=== PATIENT | male | born 1985 | race African-American/Black ===

== ENCOUNTER 2023-10-14 10:04 | Inpatient (IN) | payer MEDICAID ==
[~2023-10-14] VITALS: Ht 185.4 cm; Wt 149.7 kg
[2023-10-14] MEDS ORDERED: ZOLPIDEM TARTRATE 10 MG TABLET PO PRN (11:15)
[2023-10-14 11:18] LABS: BASOPHILS % (AUTO) 0.9 % (0.0-2.0); EOSINOPHILS % (AUTO) 1.8 % (1.0-6.0); HEMATOCRIT 42.9 % (41-53); HEMOGLOBIN 14.6 g/dL (13.5-17.5); LYMPHOCYTES # (AUTO) 1.3 K/uL (1.0-4.8); LYMPHOCYTES % (AUTO) 25.3 % (22.0-44.0); MEAN CORPUSCULAR HEMOGLOBIN 30.4 pg (26.0-34.0); MEAN CORPUSCULAR HGB CONC 33.9 G/dL (31.0-37.0); MEAN CORPUSCULAR VOLUME 90 fL (80-100); MONOCYTES # (AUTO) 0.4 K/uL (0.1-1.0); MONOCYTES % (AUTO) 8.4 % (2.0-9.0); NEUTROPHILS # (AUTO) 3.3 K/uL (1.8-7.7); NEUTROPHILS % (AUTO) 63.6 % (40.0-70.0); PLATELET COUNT (AUTO) 185 K/uL (150-450); RED BLOOD CELL COUNT(AUTO) 4.78 MIL/uL (4.50-5.90); RED CELL DISTRIBUTION WIDTH 15.2 % (11.5-14.5); WHITE BLOOD COUNT (AUTO) 5.3 K/uL (4.5-11.0)
[2023-10-14 11:25] LABS: ANION GAP 3 mmol/L (8-16); CALCIUM, TOTAL 8.9 mg/dL (8.8-10.5); CARBON DIOXIDE 32 mmol/L (22-29); CHLORIDE 103 mmol/L (98-107); CREATININE 1.04 mg/dL (0.60-1.30); GLOMERULAR FILTR. RATE CALC > 60 mL/min (>60); GLUCOSE,RANDOM 159 mg/dL (70-110); POTASSIUM 3.4 mmol/L (3.5-5.1); SODIUM SERUM 138 mmol/L (136-145); UREA NITROGEN, BLOOD 12 mg/dL (7-18)
[2023-10-14 11:31] LABS: ALANINE AMINOTRANSFERASE 45 U/L (12-78); ALBUMIN 3.3 g/dL (3.4-5.0); ALKALINE PHOSPHATASE 98 U/L (46-116); ASPARTATE AMINOTRANSFERASE 27 U/L (15-37); BILIRUBIN,TOTAL 0.6 mg/dL (0.1-1.0); TOTAL PROTEIN, SERUM 8.5 g/dL (6.4-8.2)
[2023-10-14 11:38] LABS: ALCOHOL, BLOOD (SERUM) < 3 mg/dL (0-10)
[2023-10-14 11:50] LABS: APPEARANCE,URINE HAZY (CLEAR); BILIRUBIN,URINE NEGATIVE (NEGATIVE); COLOR,URINE YELLOW (YELLOW); GLUCOSE, URINE (UA) NEGATIVE (NEGATIVE); KETONES,URINE NEGATIVE (NEGATIVE); LEUKOCYTE ESTERASE ,URINE NEGATIVE (NEGATIVE); NITRATE,URINE NEGATIVE (NEGATIVE); OCCULT BLOOD,URINE NEGATIVE (NEGATIVE); PH,URINE 7.5 (5.0-8.0); PROTEIN,URINE 30-70 mg/dL (NEGATIVE); SPECIFIC GRAVITIY, URINE 1.026 (1.003-1.030); UROBILINOGEN,URINE <=1.0 mg/dL (<=1.0)
[2023-10-14 11:55] LABS: PH,URINE DRUG SCREEN 7.5 (5.0-8.0)
[2023-10-14 11:56] LABS: ALCOHOL, URINE DRUG SCREEN NEGATIVE (NEGATIVE); AMPHET/METH SCREEN,URINE NEGATIVE (NEGATIVE); BARBITURATE SCREEN, URINE NEGATIVE (NEGATIVE); BENZODIAZEPINES SCREEN,URINE NEGATIVE (NEGATIVE); CANNABINOID SCREEN,URINE NEGATIVE (NEGATIVE); COCAINE SCREEN,URINE NEGATIVE (NEGATIVE); METHADONE SCREEN, URINE NEGATIVE (NEGATIVE); OPIATE SCREEN,URINE NEGATIVE (NEGATIVE); PHENCYCLIDINE SCREEN,URINE NEGATIVE (NEGATIVE)
[2023-10-14 23:36] LABS: COVID AG,FIA SOURCE NASAL SWAB
[2023-10-14 23:54] LABS: SARS-COV2 (COVID) ANTIGEN,FIA Negative (Negative)
[2023-10-15 04:54] VITALS: BP 162/120; PULSE 67; RESP 18; TEMP 98.1; O2SAT 96
[2023-10-15] MEDS: LORazepam 2 MG TABLET PO PRN (07:52)
[2023-10-15] MEDS: HALOPERIDOL 5 MG TABLET PO PRN (07:52)
[2023-10-15 08:05] VITALS: BP 174/110; PULSE 70; RESP 18; TEMP 97.5; O2SAT 98
[2023-10-15] MEDS: AmLODIPine BESYLATE 5 MG TABLET PO SCH (08:07)
[2023-10-15 12:47] VITALS: BP 149/100; PULSE 84; RESP 18; TEMP 98.3; O2SAT 99
[2023-10-15] MEDS: RisperiDONE 1 MG TABLET PO SCH (17:29)
[2023-10-15 23:30] VITALS: BP 144/99; PULSE 96; RESP 18; TEMP 97.9; O2SAT 99
[2023-10-16 08:00] VITALS: BP 149/106; PULSE 71; RESP 18; TEMP 98.2; O2SAT 99
[2023-10-16] MEDS: CLOBETASOL 0.05% 15 GM OINTMENT TP SCH (08:30)
[2023-10-16] MEDS: AmLODIPine BESYLATE 5 MG TABLET PO SCH (08:30)
[2023-10-16] MEDS: RisperiDONE 1 MG TABLET PO SCH ×2 (08:30→16:20)
[2023-10-16] MEDS: LORazepam 2 MG TABLET PO PRN ×2 (08:33→16:20)
[2023-10-16] MEDS ORDERED: AmLODIPine BESYLATE 5 MG TABLET PO ONE (14:00)
[2023-10-16 14:04] VITALS: BP 162/116; PULSE 93; RESP 18; TEMP 98.4; O2SAT 100
[2023-10-16 16:18] VITALS: BP 158/99; PULSE 82; RESP 18; TEMP 98.2; O2SAT 100
[2023-10-16 20:32] VITALS: BP 147/84; PULSE 98; RESP 20; TEMP 97.7; O2SAT 98
[2023-10-17] MEDS: HALOPERIDOL 5 MG TABLET PO PRN (07:56)
[2023-10-17] MEDS: LORazepam 2 MG TABLET PO PRN (07:56)
[2023-10-17] MEDS: CLOBETASOL 0.05% 15 GM OINTMENT TP SCH (08:05)
[2023-10-17] MEDS: AmLODIPine BESYLATE 10 MG TABLET PO SCH (08:05)
[2023-10-17] MEDS: RisperiDONE 1 MG TABLET PO SCH ×2 (08:05→16:11)
[2023-10-17 08:10] VITALS: BP_SYST 104; BP_SYST 166; BP_DIAS 113; BP_DIAS 64; PULSE 70; PULSE 90; RESP 18; TEMP 97.8; O2SAT 100
[2023-10-17 08:26] LABS: ANION GAP 5 mmol/L (8-16); CALCIUM, TOTAL 8.7 mg/dL (8.8-10.5); CARBON DIOXIDE 29 mmol/L (22-29); CHLORIDE 105 mmol/L (98-107); CREATININE 0.96 mg/dL (0.60-1.30); GLOMERULAR FILTR. RATE CALC > 60 mL/min (>60); GLUCOSE,RANDOM 92 mg/dL (70-110); POTASSIUM 3.9 mmol/L (3.5-5.1); SODIUM SERUM 139 mmol/L (136-145); UREA NITROGEN, BLOOD 7 mg/dL (7-18)
[2023-10-17 08:27] LABS: HEMOGLOBIN A1C 5.6 % (3.8-5.6)
[2023-10-17 14:14] VITALS: BP 158/102; PULSE 85; RESP 18; O2SAT 100
[2023-10-17 22:52] VITALS: BP 138/93; PULSE 83; RESP 18; TEMP 98.4; O2SAT 95
[2023-10-18] MEDS: LORazepam 2 MG TABLET PO PRN ×2 (08:24→16:15)
[2023-10-18] MEDS: RisperiDONE 1 MG TABLET PO SCH ×2 (08:24→16:15)
[2023-10-18] MEDS: HALOPERIDOL 5 MG TABLET PO PRN ×2 (08:24→16:15)
[2023-10-18] MEDS: AmLODIPine BESYLATE 10 MG TABLET PO SCH (08:24)
[2023-10-18] MEDS: CLOBETASOL 0.05% 15 GM OINTMENT TP SCH (08:25)
[2023-10-18 09:01] VITALS: BP 149/98; PULSE 87; RESP 18; TEMP 98.4; O2SAT 100
[2023-10-19 05:59] VITALS: BP 162/92; PULSE 82; RESP 18; TEMP 98; O2SAT 99
[2023-10-19 08:33] VITALS: BP 147/90; PULSE 100; RESP 18; TEMP 98; O2SAT 100
[2023-10-19] MEDS: RisperiDONE 1 MG TABLET PO SCH (09:27)
[2023-10-19] MEDS: CLOBETASOL 0.05% 15 GM OINTMENT TP SCH (09:27)
[2023-10-19] MEDS: AmLODIPine BESYLATE 10 MG TABLET PO SCH (09:27)
[2023-10-19] MEDS: LORazepam 2 MG TABLET PO PRN (17:32)
[2023-10-19] MEDS: RisperiDONE 2 MG TABLET PO SCH (17:32)
[2023-10-19 21:46] VITALS: BP 144/91; PULSE 84; RESP 18; TEMP 97.7
[2023-10-20] MEDS: CLOBETASOL 0.05% 15 GM OINTMENT TP SCH (08:14)
[2023-10-20] MEDS: AmLODIPine BESYLATE 10 MG TABLET PO SCH (08:14)
[2023-10-20] MEDS: RisperiDONE 2 MG TABLET PO SCH ×2 (08:14→16:29)
[2023-10-20 11:00] VITALS: BP 133/72; PULSE 95; RESP 18; TEMP 97.7; O2SAT 98
[2023-10-20 21:00] VITALS: BP 125/69; PULSE 85; RESP 18; TEMP 97.1; O2SAT 99
[2023-10-21 08:36] VITALS: BP 140/79; PULSE 91; RESP 19; TEMP 97.6; O2SAT 99
[2023-10-21] MEDS: RisperiDONE 2 MG TABLET PO SCH ×2 (09:03→16:01)
[2023-10-21] MEDS: CLOBETASOL 0.05% 15 GM OINTMENT TP SCH (09:03)
[2023-10-21] MEDS: AmLODIPine BESYLATE 10 MG TABLET PO SCH (09:03)
[2023-10-21 20:19] VITALS: BP 126/92; PULSE 99; RESP 19; TEMP 97.5; O2SAT 98
[2023-10-22] MEDS: RisperiDONE 2 MG TABLET PO SCH ×2 (08:27→16:03)
[2023-10-22] MEDS: AmLODIPine BESYLATE 10 MG TABLET PO SCH (08:27)
[2023-10-22 08:53] VITALS: BP 130/90; PULSE 81; RESP 18; TEMP 97.8; O2SAT 100
[2023-10-22] MEDS: CLOBETASOL 0.05% 15 GM OINTMENT TP SCH (09:04)
[2023-10-22 20:07] VITALS: BP 144/90; PULSE 81; RESP 18; TEMP 97.8; O2SAT 98
[2023-10-23 08:29] VITALS: BP 122/95; PULSE 80; RESP 18; TEMP 97.9; O2SAT 96
[2023-10-23] MEDS: RisperiDONE 2 MG TABLET PO SCH ×2 (08:57→16:49)
[2023-10-23] MEDS: CLOBETASOL 0.05% 15 GM OINTMENT TP SCH (08:57)
[2023-10-23] MEDS: AmLODIPine BESYLATE 10 MG TABLET PO SCH (08:57)
[2023-10-23] MEDS: LORazepam 2 MG TABLET PO PRN (08:57)
[2023-10-23] MEDS: HALOPERIDOL 5 MG TABLET PO PRN (08:58)
[2023-10-23] MEDS ORDERED: RISP2TAB86 PO (11:40)
[2023-10-23 20:16] VITALS: BP 124/68; PULSE 94; RESP 18; TEMP 97.6; O2SAT 99
[2023-10-24 08:25] VITALS: BP 132/98; PULSE 82; RESP 18; TEMP 97.7; O2SAT 100
[2023-10-24] MEDS: RisperiDONE 2 MG TABLET PO SCH (09:20)
[2023-10-24] MEDS: CLOBETASOL 0.05% 15 GM OINTMENT TP SCH (09:21)
[2023-10-24] MEDS: AmLODIPine BESYLATE 10 MG TABLET PO SCH (09:21)
[2023-10-24] MEDS ORDERED: RISP2TAB86 PO (10:45)
[2023-10-24] MEDS ORDERED: AMLO-258 PO (11:24)
== END 2023-10-24 14:55 | disposition home or self-care (01) | DRG 750 ==
LOC: EMS 10:13 → B3A 10-15 00:14 → B2S 10-20 13:27
PROVIDERS: ADMIT Psychiatry & Neurology Child & Adolescent Psychiatry; ATTEND Psychiatry & Neurology Child & Adolescent Psychiatry
PROC: GZHZZZZ Group Psychotherapy (ICD-10-PCS; principal; 2023-10-24)
DX: F25.9 Schizoaffective disorder, unspecified (principal); E66.9 Obesity, unspecified; E87.6 Hypokalemia; R73.9 Hyperglycemia, unspecified; G47.00 Insomnia, unspecified; Z20.822 Contact with and (suspected) exposure to COVID-19; Z68.41 Body mass index [BMI] 40.0-44.9, adult
CPT/HCPCS: 80048; 80053; 80307; 81003; 83036; 85025; 99285; G0480

== ENCOUNTER 2023-11-25 12:51 | Inpatient (IN) | payer MEDICAID ==
[~2023-11-25] VITALS: Ht 188 cm; Wt 147.2 kg
[~2023-11-25 12:51] MED LIST: AMLO-258 PO; RISP2TAB86 PO
[2023-11-25] MEDS ORDERED: RISP4TAB73 PO (13:12)
[2023-11-25 13:52] LABS: BASOPHILS % (AUTO) 0.3 % (0.0-2.0); EOSINOPHILS % (AUTO) 0 % (1.0-6.0); HEMATOCRIT 37.5 % (41-53); HEMOGLOBIN 12.8 g/dL (13.5-17.5); LYMPHOCYTES # (AUTO) 0.7 K/uL (1.0-4.8); LYMPHOCYTES % (AUTO) 12.4 % (22.0-44.0); MEAN CORPUSCULAR HEMOGLOBIN 30.1 pg (26.0-34.0); MEAN CORPUSCULAR HGB CONC 34.1 G/dL (31.0-37.0); MEAN CORPUSCULAR VOLUME 88 fL (80-100); MONOCYTES # (AUTO) 0.7 K/uL (0.1-1.0); NEUTROPHILS # (AUTO) 4.5 K/uL (1.8-7.7); NEUTROPHILS % (AUTO) 75.3 % (40.0-70.0); PLATELET COUNT (AUTO) 182 K/uL (150-450); RED BLOOD CELL COUNT(AUTO) 4.24 MIL/uL (4.50-5.90)
[2023-11-25 14:05] LABS: ALANINE AMINOTRANSFERASE 28 U/L (12-78); ALBUMIN 2.5 g/dL (3.4-5.0); ALKALINE PHOSPHATASE 69 U/L (46-116); ANION GAP 12 mmol/L (8-16); ASPARTATE AMINOTRANSFERASE 54 U/L (15-37); BILIRUBIN,TOTAL 0.9 mg/dL (0.1-1.0); CALCIUM, TOTAL 8.8 mg/dL (8.8-10.5); CARBON DIOXIDE 24 mmol/L (22-29); CHLORIDE 100 mmol/L (98-107); CREATININE 1.28 mg/dL (0.60-1.30); GLOMERULAR FILTR. RATE CALC > 60 mL/min (>60); GLUCOSE,RANDOM 99 mg/dL (70-110); SODIUM SERUM 136 mmol/L (136-145); TOTAL PROTEIN, SERUM 7.5 g/dL (6.4-8.2); UREA NITROGEN, BLOOD 12 mg/dL (7-18)
[2023-11-25 14:07] LABS: COVID AG,FIA SOURCE NASAL SWAB
[2023-11-25 14:28] LABS: ALCOHOL, BLOOD (SERUM) < 3 mg/dL (0-10)
[2023-11-25 14:29] LABS: SARS-COV2 (COVID) ANTIGEN,FIA Negative (Negative)
[2023-11-25] MEDS ORDERED: HALOPERIDOL 5 MG TABLET PO PRN (16:15)
[2023-11-25] MEDS ORDERED: ZOLPIDEM TARTRATE 10 MG TABLET PO PRN (16:15)
[2023-11-25] MEDS ORDERED: LORazepam 2 MG TABLET PO PRN (16:15)
[2023-11-25 17:59] LABS: APPEARANCE,URINE CLEAR (CLEAR); BILIRUBIN,URINE NEGATIVE (NEGATIVE); COLOR,URINE LIGHT YELLOW (YELLOW); GLUCOSE, URINE (UA) NEGATIVE (NEGATIVE); KETONES,URINE NEGATIVE (NEGATIVE); LEUKOCYTE ESTERASE ,URINE NEGATIVE (NEGATIVE); NITRATE,URINE NEGATIVE (NEGATIVE); OCCULT BLOOD,URINE NEGATIVE (NEGATIVE); PROTEIN,URINE TRACE mg/dL (NEGATIVE); SPECIFIC GRAVITIY, URINE 1.015 (1.003-1.030); UROBILINOGEN,URINE <=1.0 mg/dL (<=1.0)
[2023-11-25 18:07] LABS: ALCOHOL, URINE DRUG SCREEN NEGATIVE (NEGATIVE); AMPHET/METH SCREEN,URINE NEGATIVE (NEGATIVE); BARBITURATE SCREEN, URINE NEGATIVE (NEGATIVE); BENZODIAZEPINES SCREEN,URINE NEGATIVE (NEGATIVE); CANNABINOID SCREEN,URINE NEGATIVE (NEGATIVE); COCAINE SCREEN,URINE NEGATIVE (NEGATIVE); METHADONE SCREEN, URINE NEGATIVE (NEGATIVE); OPIATE SCREEN,URINE NEGATIVE (NEGATIVE); PHENCYCLIDINE SCREEN,URINE NEGATIVE (NEGATIVE)
[2023-11-26] MEDS ORDERED: POTASSIUM CHLORIDE 20 MEQ ER TABLET PO ONE ×2 (08:00→17:30)
[2023-11-26 14:02] VITALS: BP 151/98; PULSE 89; RESP 17; TEMP 98.1; O2SAT 98
[2023-11-26] MEDS ORDERED: INFLUENZA VIRUS VACCINE QVS 2023-24 (6MO+)/PF 60 MCG/0.5 ML SYRINGE IM. ONE (15:45)
[2023-11-26] MEDS ORDERED: PETROLATUM,WHITE 28 GM JELLY TP PRN (17:30)
[2023-11-26] MEDS ORDERED: ACETAMINOPHEN 325 MG TABLET PO PRN (17:30)
[2023-11-26] MEDS ORDERED: OMEPRAZOLE 20 MG CAPSULE PO PRN (17:30)
[2023-11-26] MEDS ORDERED: MAGNESIUM HYDROXIDE SUSPENSION 30 ML UDCUP PO PRN (17:30)
[2023-11-26] MEDS ORDERED: IBUPROFEN 600 MG TABLET PO PRN (17:30)
[2023-11-26] MEDS ORDERED: LOPERAMIDE HCL 2 MG CAPSULE PO PRN (17:30)
[2023-11-26] MEDS ORDERED: MAG HYDROX/ALUMINUM HYD/SIMETH ES 30 ML SUSPENSION UDCUP PO PRN (17:30)
[2023-11-26] MEDS ORDERED: BENZOCAINE/MENTHOL LOZENGE PO PRN (17:30)
[2023-11-26] MEDS ORDERED: ALBUTEROL SULFATE HFA 90 MCG/PUFF 8 GM INHALER IH PRN (17:30)
[2023-11-26] MEDS ORDERED: CloNIDine HCL 0.1 MG TABLET PO PRN (17:30)
[2023-11-26] MEDS ORDERED: BACITRACIN 28 GM OINTMENT TP PRN (17:30)
[2023-11-26] MEDS ORDERED: DOCUSATE SODIUM 100 MG CAPSULE PO PRN (17:30)
[2023-11-26] MEDS ORDERED: ONDANSETRON HCL 4 MG TABLET PO PRN (17:30)
[2023-11-26 20:34] VITALS: BP 127/70; PULSE 88; RESP 18; TEMP 98.3; O2SAT 96
[2023-11-27 08:16] LABS: HEMOGLOBIN A1C 5.7 % (3.8-5.6)
[2023-11-27] MEDS: AmLODIPine BESYLATE 10 MG TABLET PO SCH (08:18)
[2023-11-27 08:26] LABS: CHOL/HDL RATIO 6.7 (4.2-7.3); FREE T4 (FREE THYROXINE) 1.64 ng/dL (0.76-1.46); POTASSIUM 3.8 mmol/L (3.5-5.1); THYROID STIMULATING HORMONE 2.46 uIU/mL (0.36-3.74)
[2023-11-27] MEDS: CLOBETASOL 0.05% 15 GM CREAM TP SCH (09:00)
[2023-11-27 09:58] VITALS: BP 142/80; PULSE 84; RESP 18; TEMP 97.6; O2SAT 97
[2023-11-27 21:42] VITALS: BP 144/90; PULSE 65; RESP 18; TEMP 97.7; O2SAT 95
[2023-11-28 08:46] VITALS: BP 150/90; PULSE 64; RESP 19; TEMP 97.5; O2SAT 99
[2023-11-28] MEDS: AmLODIPine BESYLATE 10 MG TABLET PO SCH (09:49)
[2023-11-28] MEDS: CLOBETASOL 0.05% 15 GM CREAM TP SCH (16:55)
[2023-11-28 20:38] VITALS: BP 148/97; PULSE 64; RESP 20; TEMP 97.9; O2SAT 98
[2023-11-29 08:00] VITALS: BP 182/118; PULSE 78; RESP 18; TEMP 97.8; O2SAT 98
[2023-11-29 08:18] VITALS: BP 173/126; PULSE 78; RESP 18; TEMP 97.8; O2SAT 98
[2023-11-29] MEDS: RisperiDONE 3 MG TABLET PO SCH ×2 (09:42→16:50)
[2023-11-29] MEDS: AmLODIPine BESYLATE 10 MG TABLET PO SCH (09:43)
[2023-11-29] MEDS: CLOBETASOL 0.05% 15 GM CREAM TP SCH (09:43)
[2023-11-29] MEDS ORDERED: GuaiFENesin/D-METHORPHAN/PHENYLEPH 5 ML LIQUID ORAL.SYG PO PRN (10:00)
[2023-11-29 10:35] VITALS: BP 153/94
[2023-11-29 20:17] VITALS: BP 133/83; PULSE 76; RESP 18; TEMP 97.9; O2SAT 96
[2023-11-30] MEDS: CLOBETASOL 0.05% 15 GM CREAM TP SCH (08:53)
[2023-11-30] MEDS: AmLODIPine BESYLATE 10 MG TABLET PO SCH (08:53)
[2023-11-30] MEDS: RisperiDONE 3 MG TABLET PO SCH ×2 (08:53→16:43)
[2023-11-30 09:21] VITALS: BP 145/72; PULSE 79; RESP 17; TEMP 97.4; O2SAT 97
[2023-11-30 20:17] VITALS: BP 124/74; PULSE 84; RESP 20; TEMP 98.2; O2SAT 98
[2023-12-01] MEDS: RisperiDONE 3 MG TABLET PO SCH ×2 (08:35→16:36)
[2023-12-01] MEDS: CLOBETASOL 0.05% 15 GM CREAM TP SCH (08:35)
[2023-12-01] MEDS: AmLODIPine BESYLATE 10 MG TABLET PO SCH (08:35)
[2023-12-01 09:12] VITALS: BP 129/98; PULSE 98; RESP 18; TEMP 97.6; O2SAT 100
[2023-12-01 20:00] VITALS: BP 119/83; PULSE 77; RESP 18; TEMP 97.6; O2SAT 98
[2023-12-02 08:20] VITALS: BP 137/80; PULSE 78; RESP 17; TEMP 98; O2SAT 98
[2023-12-02] MEDS: RisperiDONE 3 MG TABLET PO SCH ×2 (09:17→16:38)
[2023-12-02] MEDS: AmLODIPine BESYLATE 10 MG TABLET PO SCH (09:17)
[2023-12-02] MEDS: CLOBETASOL 0.05% 15 GM CREAM TP SCH (09:18)
[2023-12-02 21:47] VITALS: BP 130/80; PULSE 75; RESP 21; TEMP 97.4; O2SAT 99
[2023-12-03] MEDS: AmLODIPine BESYLATE 10 MG TABLET PO SCH (09:14)
[2023-12-03] MEDS: CLOBETASOL 0.05% 15 GM CREAM TP SCH (09:14)
[2023-12-03] MEDS: RisperiDONE 3 MG TABLET PO SCH ×2 (09:14→16:11)
[2023-12-03 09:34] VITALS: BP 114/70; PULSE 92; RESP 17; TEMP 97; O2SAT 96
[2023-12-03 20:27] VITALS: BP 110/63; PULSE 90; RESP 18; TEMP 98; O2SAT 96
[2023-12-04] MEDS: RisperiDONE 3 MG TABLET PO SCH ×2 (08:13→17:10)
[2023-12-04] MEDS: AmLODIPine BESYLATE 10 MG TABLET PO SCH (08:13)
[2023-12-04] MEDS: CLOBETASOL 0.05% 15 GM CREAM TP SCH (09:39)
[2023-12-04 10:44] VITALS: BP 122/68; PULSE 83; RESP 18; TEMP 98; O2SAT 98
[2023-12-04] MEDS ORDERED: RISP3TAB63 PO (12:56)
[2023-12-04 20:27] VITALS: BP 129/68; PULSE 89; RESP 18; TEMP 97.6
[2023-12-05 08:21] VITALS: BP 140/90; PULSE 88; RESP 19; TEMP 98.3; O2SAT 96
[2023-12-05] MEDS: AmLODIPine BESYLATE 10 MG TABLET PO SCH (09:01)
[2023-12-05] MEDS: CLOBETASOL 0.05% 15 GM CREAM TP SCH (09:02)
[2023-12-05] MEDS: RisperiDONE 3 MG TABLET PO SCH (09:02)
== END 2023-12-05 14:12 | disposition home or self-care (01) | DRG 750 ==
LOC: EMS 12:54 → B2S 11-26 12:29
PROVIDERS: ADMIT Psychiatry & Neurology Psychiatry; ATTEND Psychiatry & Neurology Psychiatry
DX: F20.9 Schizophrenia, unspecified (principal); E66.9 Obesity, unspecified; E87.6 Hypokalemia; F41.9 Anxiety disorder, unspecified; Z20.822 Contact with and (suspected) exposure to COVID-19; G47.00 Insomnia, unspecified; I10 Essential (primary) hypertension; K59.00 Constipation, unspecified; Z28.21 Immunization not carried out because of patient refusal; Z68.41 Body mass index [BMI] 40.0-44.9, adult
CPT/HCPCS: 80053; 80061; 80307; 81003; 83036; 84132; 84439; 84443; 85025; 87081; G0480